=== PATIENT | male | born 1980 | race Caucasian/White ===

== ENCOUNTER 2018-03-31 15:57 | Emergency (ER) | payer SELFPAY ==
--- NOTE | 2018-03-31 17:12 | RAD ---
4 VIEWS LEFT HAND: Date: 03/31/18 INDICATION: Left hand pain and swelling, cut with precision grinder external on . FINDINGS: There is a bone graft harvest site from the distal radius. There is an instrumented healed scaphoid f racture. There is mild degenerative change at the radioscaphoid articulation. Small ossific density i s seen volar to the scaphoid, may reflect small area of heterotopic ossification or displaced bone gr aft. No acute fracture is evident. No radiopaque foreign body is noted. There is soft tissue swelling overlying the dorsal aspect and near the metacarpophalangeal joints. IMPRESSION: 1. Soft tissue swelling left hand. 2. No radiopaque foreign body evident. 3. Healed instrumented scaphoid fracture. POS: [facility]
[2018-03-31 17:28] LABS: #Basophils 0.1 thou/uL (0.0-0.2); #Eosinphils 0.1 thou/uL (0.0-0.7); #Lymphocytes 1.5 thou/uL (1.20-3.40); #Monocytes 0.9 thou/uL (0.11-0.59); #Neutrophils 10.6 thou/uL (1.40-6.50); %Basophils 0.5 % (0.0-1.0); %Lymphocytes 11.5 % (21.0-51.0); %Monocytes 6.6 % (0.0-10.0); %Neutrophils 80.3 % (42.0-75.0); Hemoglobin 16.6 g/dL (14.0-18.0); Mean Corpuscular HGB CONC 34.8 g/dL (32.0-36.0); Mean Corpuscular Hemoglobin 32.4 pg (27.0-31.0); Mean Corpuscular Volume 93.3 fL (78.0-98.0); Mean Platelet Volume 7.1 fL (7.4-10.4); Platelet Count 271 thou/uL (130-400); Red Blood Cell (RBC) Count 5.11 mill/uL (4.70-6.10); White Blood Cell (WBC) Count 13.2 thou/uL (4.8-10.8)
[2018-03-31 17:45] LABS: Anion Gap 14 mmol/L (10-20); BUN (Urea Nitrogen) 13 mg/dL (8.9-20.6); Calc. Creatinine Clearance 0 mL/min (70-130); Calcium 9.9 mg/dL (7.8-10.44); Carbon Dioxide 27 mmol/L (22-29); Chloride 103 mmol/L (98-107); Estimated GFR-MDRD 75; Glucose 106 mg/dL (70-105); Potassium 4.4 mmol/L (3.5-5.1); Sodium 140 mmol/L (136-145)
[2018-03-31] MEDS ORDERED: Ketorolac Tromethamine 30 MG/ML VIAL ONE (19:29)
--- NOTE | 2018-03-31 20:14 | RAD ---
THREE VIEWS OF THE RIGHT HAND: 03/31/18 COMPARISON: None. HISTORY: Trauma, pain, injury. FINDINGS: There is an obliquely oriented fracture at the base of the fourth middle phalanx. The fracture is oliver ng the volar aspect with volar displacement and intra-articular extension. IMPRESSION: Obliquely oriented displaced intra-articular fracture involving the volar base of the fourth middle p halanx. POS: [facility]
[2018-03-31] MEDS ORDERED: HYDROcodone/Acetaminophen 10/325 mg Tablet ONE (21:18)
[2018-03-31] MEDS ORDERED: Clindamycin 150 MG CAP PO SCH (21:30)
== END 2018-03-31 21:45 | disposition home or self-care (01) ==
LOC: ERS 15:57
DX: S62.624A Displaced fracture of middle phalanx of right ring finger, initial encounter for closed fracture (principal); L03.114 Cellulitis of left upper limb; F17.210 Nicotine dependence, cigarettes, uncomplicated; W22.8XXA Striking against or struck by other objects, initial encounter; W31.89XA Contact with other specified machinery, initial encounter
CPT/HCPCS: 36415; 80048; 85025; 96374; J1885